=== PATIENT | male | born 1945 | race African-American/Black ===

== ENCOUNTER 2019-02-27 09:14 | Outpatient (CLI) | payer MEDICARE ==
[2019-02-27 10:22] LABS: Basophils % (Auto) 0.8 % (0.0-1.8); Eosinophils # (Auto) 0.1 K/mm3 (0.0-0.4); Eosinophils % (Auto) 2.4 % (0.0-4.3); Hematocrit 47.9 % (35.5-45.6); Hemoglobin 15.8 gm/dl (11.8-15.2); Lymphocytes # (Auto) 1.3 K/mm3 (1.2-5.4); Lymphocytes % (Auto) 23.8 % (13.4-35.0); Mean Corpuscular HGB Conc 33 % (32-34); Mean Corpuscular Volume 92 fl (84-94); Monocytes # (Auto) 0.4 K/mm3 (0.0-0.8); Platelet Count 232 K/mm3 (140-440); Red Blood Count 5.23 M/mm3 (3.65-5.03); Red Cell Distribution Width 13.4 % (13.2-15.2)
[2019-02-27 10:32] LABS: Chol/HDL Ratio 3.61 %
[2019-03-02 15:02] LABS: Vitamin D, 25-OH, D2 <4 ng/mL
== END 2019-02-27 09:15 | disposition home or self-care (01) ==
LOC: LAB 09:14
PROVIDERS: ATTEND Internal Medicine
DX: E11.9 Type 2 diabetes mellitus without complications (principal); E78.5 Hyperlipidemia, unspecified
CPT/HCPCS: 36415; 80061; 82306; 82607; 83036; 84443; 85025

== ENCOUNTER 2019-03-13 10:05 | Outpatient (CLI) | payer MEDICARE ==
[2019-03-13 11:18] LABS: Bilirubin,Urine NEG (Negative); Blood,Urine SM (Negative); Color,Urine Yellow (Yellow); Mucus,Urine FEW /HPF; Urobilinogen,Urine < 2.0 mg/dL (<2.0)
[2019-03-13 11:20] LABS: Alanine Aminotransferase 37 units/L (7-56); Albumin 4.3 g/dL (3.9-5); BUN/Creatinine Ratio 25; Blood Urea Nitrogen 20 mg/dL (9-20); Calcium 9.7 mg/dL (8.4-10.2); Hemolysis Index 8
[2019-03-13 11:26] LABS: Microalbumin/Creatinine Ratio 342.5 ug/mg
== END 2019-03-13 10:06 | disposition home or self-care (01) ==
LOC: LAB 10:05
PROVIDERS: ATTEND Internal Medicine
DX: E11.65 Type 2 diabetes mellitus with hyperglycemia (principal); N39.0 Urinary tract infection, site not specified
CPT/HCPCS: 36415; 80053; 81001; 82043; 84153

== ENCOUNTER 2019-06-11 07:21 | Day surgery (SDC) | payer MEDICARE ==
[2019-06-11] MEDS ORDERED: NACL 0.9% 500 ML 500 ML IV SCH (08:00)
[2019-06-11 08:19] LABS: Basophils % (Auto) 0.6 % (0.0-1.8); Eosinophils # (Auto) 0.1 K/mm3 (0.0-0.4); Eosinophils % (Auto) 2.1 % (0.0-4.3); Hematocrit 40.3 % (35.5-45.6); Hemoglobin 13.6 gm/dl (11.8-15.2); Lymphocytes # (Auto) 1.3 K/mm3 (1.2-5.4); Lymphocytes % (Auto) 21.1 % (13.4-35.0); Mean Corpuscular HGB Conc 34 % (32-34); Mean Corpuscular Volume 91 fl (84-94); Monocytes # (Auto) 0.5 K/mm3 (0.0-0.8); Monocytes % (Auto) 7.7 % (0.0-7.3); Platelet Count 207 K/mm3 (140-440); Red Blood Count 4.41 M/mm3 (3.65-5.03); Red Cell Distribution Width 13.5 % (13.2-15.2)
[2019-06-11 08:30] LABS: INR 0.98 (0.87-1.13)
[2019-06-11 08:33] LABS: BUN/Creatinine Ratio 22; Blood Urea Nitrogen 22 mg/dL (9-20); Calcium 9.1 mg/dL (8.4-10.2); Hemolysis Index 12
[2019-06-11] MEDS ORDERED: ECOTRIN PO NR (09:00)
[2019-06-11] MEDS ORDERED: HEPARIN 10,000 UNITS/10 ML ONE (11:42)
[2019-06-11] MEDS ORDERED: HEPARIN/NS 5000 UNIT/500ML(CATH LAB) 1,000 ML IR ONE (11:42)
[2019-06-11] MEDS ORDERED: NITROGLYCERIN SYRINGE 0 ML ONE (11:43)
[2019-06-11] MEDS ORDERED: CALAN ONE (11:43)
[2019-06-11] MEDS ORDERED: XYLOCAINE 2% INFILTRATI ONE (11:43)
[2019-06-11] MEDS: SUBLIMAZE ONE ×2 (12:18→12:31)
[2019-06-11] MEDS: VERSED ONE ×2 (12:18→12:31)
--- NOTE | 2019-06-11 13:22 | Cardiac Catherization Report ---
ATTENDING PHYSICIAN: Daniel Pereyra MD. PROCEDURES: 1. Left heart catheterization with three saphenous venous grafts and a left internal mammary artery graft. 2. Left ventriculogram via hand injection. REASON FOR PROCEDURE: The patient has a known history of coronary artery disease, status post 4-vessel bypass and a nuclear stress test positive for reversible ischemia. COMPLICATIONS: None. ESTIMATED BLOOD LOSS: Less than 30 mL. ESTIMATED CONTRAST USE: 105 mL. PROCEDURE IN DETAIL: The patient was brought to the cardiac catheterization lab in usual fasting state. The patient was prepped and draped in usual sterile fashion. A 10 mL of 1% lidocaine were injected around the right common femoral vessels. A 6-Zambian sheath was placed via modified Seldinger technique utilizing micropuncture. Next, a JL4 catheter was advanced over the wire and engaged into left main coronary artery. Angiography was performed in multiple views. The catheter was then removed and the JR4 catheter was advanced over the wire across the aortic valve into left ventricle. Left ventriculogram was performed via hand injection. Left ventricular pressure was measured. Pullback pressure was measured across the aortic valve. The JR4 catheter was then advanced into the ostia of the right coronary artery as well as 3 saphenous venous grafts and angiography was performed in multiple views. The JR4 catheter was then advanced over the wire and into the left subclavian artery for nonselective injection of the LERMA graft. The JR4 catheter was then removed over the wire. RESULTS: Left main coronary artery is a small severely diseased vessel. The left anterior descending coronary artery is a large to moderate caliber vessel, but is ostially occluded. The mid segment of the LAD is filled via a left internal mammary artery graft. There is no stenosis at the anastomosis. The mid and distal segments of the LAD show mild diffuse disease without significant stenosis. LAD also gives off collaterals to the diagonal branches. The diagonal branches appear to be moderately diffusely diseased. The first diagonal branch is ostially occluded. The left circumflex coronary artery is totally occluded proximally. The body of the circumflex is filled by small collaterals from the LAD. The left circumflex coronary artery shows to [id number] diffuse disease throughout. The right coronary artery is totally proximally occluded. The right coronary artery is filled via saphenous venous graft, which is patent. The mid and distal segments of the right coronary artery showed mild diffuse disease without significant stenosis. Saphenous venous graft to the right coronary artery is patent and shows no stenosis. Saphenous venous graft to the first diagonal branch is patent and shows no stenosis. Saphenous venous graft to the obtuse marginal is patent. The obtuse marginal 1 shows mild disease and is occluded ostially from the left circumflex coronary artery. The LERMA to the mid segment LAD is patent without significant stenosis. CONCLUSIONS: Multivessel coronary artery disease with total occlusion of the left anterior descending coronary artery proximally, total occlusion of the left circumflex coronary artery proximally, and total occlusion of the right coronary artery proximally. There are patent SVG to diagonal, SVG to obtuse marginal, and SVG to right coronary artery grafts. There is a patent LERMA to LAD graft. Left ventriculogram shows ejection fraction of 25% with inferior wall akinesis and anterior wall hypokinesis. Aortic pressure measures 150/68, left ventricular pressure measures 150/18 with an end-diastolic pressure of 29. RECOMMENDATIONS: Continue maximal medical therapy for treatment of ischemic cardiomyopathy and coronary artery disease as well as aggressive risk factor modification. SEDATION START: 12:18. SEDATION END: 12 39. JOB# [id number] MR/NTS
[2019-06-11 15:15] VITALS: BP 135/62
== END 2019-06-11 16:12 | disposition home or self-care (01) ==
LOC: CATHLABREC 07:21
PROVIDERS: ATTEND Internal Medicine Cardiovascular Disease
DX: I25.10 Atherosclerotic heart disease of native coronary artery without angina pectoris (principal); I42.8 Other cardiomyopathies; E78.00 Pure hypercholesterolemia, unspecified; I10 Essential (primary) hypertension; Z79.899 Other long term (current) drug therapy; Z87.891 Personal history of nicotine dependence; Z95.1 Presence of aortocoronary bypass graft; Z98.890 Other specified postprocedural states
CPT/HCPCS: 80048; 85025; 85610; 93010; 93459; 99156; C1760; C1894; J1644; J2250; J3010; J7040; 36415; 93005; Q9967

== ENCOUNTER 2019-06-13 09:04 | Outpatient (CLI) | payer MEDICARE | END 2019-06-13 09:05 | disposition home or self-care (01) | LOC: LAB 09:04 | PROVIDERS: ATTEND Internal Medicine | DX: E11.65 Type 2 diabetes mellitus with hyperglycemia (principal); E78.00 Pure hypercholesterolemia, unspecified; I10 Essential (primary) hypertension | CPT/HCPCS: 36415; 83036 ==

== ENCOUNTER 2019-10-31 09:46 | Outpatient (CLI) | payer MEDICARE ==
[2019-10-31 12:43] LABS: Chol/HDL Ratio 3.57 %
== END 2019-10-31 09:47 | disposition home or self-care (01) ==
LOC: LAB 09:46
PROVIDERS: ATTEND Internal Medicine
DX: E78.5 Hyperlipidemia, unspecified (principal); E11.65 Type 2 diabetes mellitus with hyperglycemia
CPT/HCPCS: 36415; 80061; 83036

== ENCOUNTER 2020-01-07 12:43 | Inpatient (IN) | payer MEDICARE ==
--- NOTE | 2020-01-07 12:52 | Emergency Department Report ---
Blank Doc - Documentation Documentation: 74-year-old male that presents with SOB, cough, fever. is quaratine at h ome for COVID-19. This initial assessment/diagnostic orders/clinical plan/treatment(s) is/are subject to change based on patient's health status, clinical progression and re- assessment by fellow clinical providers in the ED. Further treatment and workup at subsequent clinical providers discretion. Patient/guardians urged not to elope from the ED as their condition may be serious if not clinically assessed and managed. Initial orders include: 1- Patient sent to [facility] for further evaluation and treatment 2- accounts administrator notified for Iso negative pressure room stat, 3- flu swabs 4- labs
--- NOTE | 2020-01-07 13:21 | Emergency Department Report ---
- General Chief Complaint: Upper Respiratory Infection Stated Complaint: FEVER/WEAK/SOB Time Seen by Provider: 01/07/20 12:49 Source: patient Mode of arrival: Ambulatory Limitations: No Limitations - History of Present Illness Initial Comments: 74-year-old male with history of hypertension, CAD, diabetes presents to ED with 3-day history of fever, cough, shortness of breath. Patient reports fever at home, states "100 point something." Patient too motrin prior to ED arrival. Patient states he believes he got this from his . Patient reports his was recently discharged from this facility 2 days ago. States she was not tested for coronavirus, but was advised to self quarantine. MD Complaint: fever, cough -: days(s) (3) Consistency: constant Context: sick contacts Associated Symptoms: fever, cough, shortness of breath - Related Data Home Medications Medication Instructions Recorded Confirmed Last Taken Dapagliflozin Propanediol [Farxiga] 10 mg PO DAILY 06/11/19 06/11/19 06/10/19 10 mg Fish Oil 1 cap PO DAILY 06/11/19 06/11/19 06/10/19 1 Janumet 50-500 mg Tablet 1 tab PO DAILY 06/11/19 06/11/19 06/09/19 1 Rosuvastatin Calcium 40 mg PO QHS 06/11/19 06/11/19 06/10/19 40 mg Vitamin E 400 units PO DAILY 06/11/19 06/11/19 06/10/19 400 units lisinopriL [Zestril TAB] 10 mg PO DAILY 06/11/19 06/11/19 06/10/19 10 mg Allergies Allergy/AdvReac Type Severity Reaction Status Date / Time No Known Allergies Allergy Unverified 06/11/19 07:22 ED Review of Systems ROS: Stated complaint: FEVER/WEAK/SOB Other details as noted in HPI Comment: All other systems reviewed and negative Constitutional: fever Respiratory: cough, shortness of breath Gastrointestinal: denies: nausea, vomiting, diarrhea ED Past Medical Hx - Past Medical History Hx Hypertension: Yes Hx Heart Attack/AMI: Yes Hx Congestive Heart Failure: No Hx Diabetes: Yes - Surgical History Hx Open Heart Surgery: Yes - Social History Smoking Status: Never Smoker Substance Use Type: None - Medications Home Medications: Home Medications Medication Instructions Recorded Confirmed Last Taken Type Dapagliflozin Propanediol [Farxiga] 10 mg PO DAILY 06/11/19 06/11/19 06/10/19 History 10 mg Fish Oil 1 cap PO DAILY 06/11/19 06/11/19 06/10/19 History 1 Janumet 50-500 mg Tablet 1 tab PO DAILY 06/11/19 06/11/19 06/09/19 History 1 Rosuvastatin Calcium 40 mg PO QHS 06/11/19 06/11/19 06/10/19 History 40 mg Vitamin E 400 units PO DAILY 06/11/19 06/11/19 06/10/19 History 400 units lisinopriL [Zestril TAB] 10 mg PO DAILY 06/11/19 06/11/19 06/10/19 History 10 mg ED Physical Exam - General Limitations: No Limitations General appearance: alert, in no apparent distress - Head Head exam: Present: atraumatic, normocephalic - Eye Eye exam: Present: normal appearance - ENT ENT exam: Present: mucous membranes moist - Neck Neck exam: Present: normal inspection - Respiratory Respiratory exam: Present: normal lung sounds bilaterally. Absent: respiratory distress - Cardiovascular Cardiovascular Exam: Present: regular rate, normal rhythm - GI/Abdominal GI/Abdominal exam: Absent: distended - Extremities Exam Extremities exam: Present: normal inspection - Neurological Exam Neurological exam: Present: alert, oriented X3 - Psychiatric Psychiatric exam: Present: normal affect, normal mood - Skin Skin exam: Present: warm, dry, intact, normal color ED Course Vital Signs 01/07/20 01/07/20 01/07/20 12:51 13:13 13:16 Temperature 97.7 F Pulse Rate 82 91 H 89 Respiratory 18 15 20 Rate Blood Pressure 144/78 134/81 Blood Pressure [Right] O2 Sat by Pulse 94 89 Oximetry 01/07/20 01/07/20 01/07/20 13:30 13:46 14:00 Temperature Pulse Rate 91 H 82 82 Respiratory 32 H 28 H 18 Rate Blood Pressure 134/74 120/68 134/74 Blood Pressure [Right] O2 Sat by Pulse 94 93 94 Oximetry 01/07/20 01/07/20 01/07/20 14:22 14:25 15:01 Temperature 100.5 F H Pulse Rate 86 Respiratory 18 18 18 Rate Blood Pressure Blood Pressure 132/82 [Right] O2 Sat by Pulse 100 100 Oximetry ED Medical Decision Making - Lab Data Result diagrams: 01/07/20 13:45 01/07/20 13:45 - Radiology Data Radiology results: report reviewed, image reviewed - Medical Decision Making - pt placed on droplet precautions upon arrival - hx CAD, HTN, DM - fever, cough, SOB x 3 days - WBCs normal, lymphopenia present - flu neg - CXR shows bibasilar airspace disease, left worse than right - recently admitted and discharged from this facility; COVID was suspected, but [facility] declined to test pt's - blood cultures drawn; rocephin, azithromycin given - hypoxic down to 89% RA, nml on 2L O2 - pt will be admitted by Dr Edwards, hospitalist - I submitted [facility] COVID form; it was approved, lab currently here in ED to obtain samples - Differential Diagnosis pneumonia, CHF, viral illness Critical Care Time: Yes Critical care time in (mins) excluding proc time.: 35 Critical care attestation.: If time is entered above; I have spent that time in minutes in the direct care of this critically ill patient, excluding procedure time. Critical Care Time: 35 min ED Disposition Clinical Impression: Pneumonia, Hypoxia, Hyperglycemia, Liver enzyme elevation Disposition: DC-09 OP ADMIT IP TO THIS HOSP Is pt being admited?: Yes Condition: Stable Time of Disposition: 15:36
[2020-01-07] MEDS ORDERED: cefTRIAXone/NS 1 GM/50 ML 1 GM/50 ML BAG IV ONE (13:47)
[2020-01-07] MEDS ORDERED: AZITHROMYCIN 250 MG TAB PO ONE (13:48)
[2020-01-07 14:02] LABS: Basophils % (Auto) 0.3 % (0.0-1.8); Hematocrit 46.2 % (35.5-45.6); Hemoglobin 15.3 gm/dl (11.8-15.2); Lymphocytes # (Auto) 0.4 K/mm3 (1.2-5.4); Lymphocytes % (Auto) 6.7 % (13.4-35.0); Mean Corpuscular HGB Conc 33 % (32-34); Mean Corpuscular Volume 90 fl (84-94); Monocytes # (Auto) 0.2 K/mm3 (0.0-0.8); Monocytes % (Auto) 3.7 % (0.0-7.3); Platelet Count 209 K/mm3 (140-440); Red Blood Count 5.14 M/mm3 (3.65-5.03); Red Cell Distribution Width 13.3 % (13.2-15.2)
[2020-01-07 14:14] LABS: INR 0.96 (0.87-1.13); Partial Thromboplastin Time 34.9 Sec. (24.2-36.6)
--- NOTE | 2020-01-07 14:14 | XRay Report ---
CHEST 1 VIEW INDICATION / CLINICAL INFORMATION: cough, fever, sob. COMPARISON: None available. FINDINGS: SUPPORT DEVICES: None. HEART / MEDIASTINUM: No significant abnormality. LUNGS / PLEURA: Bibasilar airspace disease worse on the left than the right No pneumothorax. ADDITIONAL FINDINGS: No significant additional findings. IMPRESSION: Bibasilar airspace disease worse on the left than the right Signer Name: Davion Salas MD FACR Signed: 01/07/2020 2:10 PM Workstation Name: [id number]
[2020-01-07 14:26] LABS: Alanine Aminotransferase 81 units/L (7-56); Albumin 3.9 g/dL (3.9-5); BUN/Creatinine Ratio 28; Blood Urea Nitrogen 22 mg/dL (9-20); Calcium 9.6 mg/dL (8.4-10.2); Hemolysis Index 63
[2020-01-07] MEDS ORDERED: ACETAMINOPHEN 500 MG TAB PO ONE (14:35)
[2020-01-07 16:18] LABS: Bacteria,Urine 1+ /HPF (Negative); Bilirubin,Urine NEG (Negative); Blood,Urine MOD (Negative); Color,Urine Yellow (Yellow); Hyaline Casts,Urine 1 /LPF; Mucus,Urine FEW /HPF; Urobilinogen,Urine < 2.0 mg/dL (<2.0)
--- NOTE | 2020-01-07 23:32 | History and Physical Report ---
History of Present Illness Date of examination: 01/07/20 Date of admission: 01/07/20 15:36 Chief complaint: Fever for 1 day History of present illness: 74-year-old male with history of hypertension, CAD, diabetes presents to ED with 3-day history of fever, cough, shortness of breath. Patient reports fever at home, states "100 point something." Patient took motrin prior to ED arrival. Patient states he believes he got this from his . Patient reports his was recently discharged from this facility 2 days ago. States she was not tested for coronavirus, but was advised to self quarantine. His Ms PRESTON was admitted by me.Because of her exposure to some relatives with no symptoms -A Covid form was filled out in Ed and was rejected. was admitted for couple of days and was discharged.Was asked to self quarantine for 2 weeks. Past Medical History Hypertension: Yes Heart Attack/AMI: Yes Diabetes: Yes - Surgical History Hx Open Heart Surgery: Yes - Social History Smoking Status: Never Smoker Substance Use Type: None - Medications Home Medications: Home Medications Medication Instructions Recorded Confirmed Last Taken Type Dapagliflozin Propanediol [Farxiga] 10 mg PO DAILY 06/11/19 06/11/19 06/10/19 History 10 mg Fish Oil 1 cap PO DAILY 06/11/19 06/11/19 06/10/19 History 1 Janumet 50-500 mg Tablet 1 tab PO DAILY 06/11/19 06/11/19 06/09/19 History 1 Rosuvastatin Calcium 40 mg PO QHS 06/11/19 06/11/19 06/10/19 History 40 mg Vitamin E 400 units PO DAILY 06/11/19 06/11/19 06/10/19 History 400 units lisinopriL [Zestril TAB] 10 mg PO DAILY 06/11/19 06/11/19 06/10/19 History 10 mg Review of Systems ROS: Stated complaint: FEVER/WEAK/SOB Other details as noted in HPI Comment: All other systems reviewed and negative Constitutional: fever Respiratory: cough, shortness of breath Gastrointestinal: denies: nausea, vomiting, diarrhea Medications and Allergies Allergies Allergy/AdvReac Type Severity Reaction Status Date / Time No Known Allergies Allergy Unverified 06/11/19 07:22 Home Medications Medication Instructions Recorded Confirmed Last Taken Type Dapagliflozin Propanediol [Farxiga] 10 mg PO DAILY 06/11/19 01/08/20 06/10/19 History 10 mg Fish Oil 1 cap PO DAILY 06/11/19 01/08/20 06/10/19 History 1 Janumet 50-500 mg Tablet 1 tab PO DAILY 06/11/19 01/08/20 06/09/19 History 1 Rosuvastatin Calcium 40 mg PO QHS 06/11/19 01/08/20 06/10/19 History 40 mg Vitamin E 400 units PO DAILY 06/11/19 01/08/20 06/10/19 History 400 units lisinopriL [Zestril TAB] 10 mg PO DAILY 06/11/19 01/08/20 06/10/19 History 10 mg Exam - Constitutional Vitals: Temp Pulse Resp BP Pulse Ox 100.5 F H 86 22 108/55 95 01/07/20 14:25 01/07/20 14:25 01/07/20 17:46 01/07/20 18:00 01/07/20 18:00 General appearance: Present: no acute distress, well-nourished - EENT Eyes: Present: PERRL ENT: hearing intact, clear oral mucosa - Neck Neck: Present: supple, normal ROM - Respiratory Respiratory effort: normal Respiratory: bilateral: CTA, rhonchi (Scattered) - Cardiovascular Heart rate: 88 Rhythm: regular Heart Sounds: Present: S1 & S2. Absent: rub, click - Extremities Extremities: no ischemia, pulses intact, pulses symmetrical, No edema Peripheral Pulses: within normal limits - Abdominal General gastrointestinal: Present: soft, non-tender, non-distended, normal bowel sounds Male genitourinary: Present: normal - Rectal Rectal Exam: deferred - Integumentary Integumentary: Present: clear, warm, dry - Musculoskeletal Musculoskeletal: gait normal, strength equal bilaterally - Psychiatric Psychiatric: appropriate mood/affect, intact judgment & insight - Neurologic Neurologic: CNII-XII intact, moves all extremities - Allied Health Allied health notes reviewed: nursing, case management Results - Labs CBC & Chem 7: 01/07/20 13:45 01/07/20 13:45 Labs: Laboratory Last Values WBC 6.2 K/mm3 (4.5-11.0) 01/07/20 13:45 RBC 5.14 M/mm3 (3.65-5.03) H 01/07/20 13:45 Hgb 15.3 gm/dl (11.8-15.2) H 01/07/20 13:45 Hct 46.2 % (35.5-45.6) H 01/07/20 13:45 MCV 90 fl (84-94) 01/07/20 13:45 MCH 30 pg (28-32) 01/07/20 13:45 MCHC 33 % (32-34) 01/07/20 13:45 RDW 13.3 % (13.2-15.2) 01/07/20 13:45 Plt Count 209 K/mm3 (140-440) 01/07/20 13:45 Lymph % (Auto) 6.7 % (13.4-35.0) L 01/07/20 13:45 Clark % (Auto) 3.7 % (0.0-7.3) 01/07/20 13:45 Eos % (Auto) 0.0 % (0.0-4.3) 01/07/20 13:45 Baso % (Auto) 0.3 % (0.0-1.8) 01/07/20 13:45 Lymph # 0.4 K/mm3 (1.2-5.4) L 01/07/20 13:45 Clark # 0.2 K/mm3 (0.0-0.8) 01/07/20 13:45 Eos # 0.0 K/mm3 (0.0-0.4) 01/07/20 13:45 Baso # 0.0 K/mm3 (0.0-0.1) 01/07/20 13:45 Seg Neutrophils % 89.3 % (40.0-70.0) H 01/07/20 13:45 Seg Neutrophils # 5.5 K/mm3 (1.8-7.7) 01/07/20 13:45 PT 12.9 Sec. (12.2-14.9) 01/07/20 13:45 INR 0.96 (0.87-1.13) 01/07/20 13:45 APTT 34.9 Sec. (24.2-36.6) 01/07/20 13:45 Sodium 130 mmol/L (137-145) L 01/07/20 13:45 Potassium 4.9 mmol/L (3.6-5.0) 01/07/20 13:45 Chloride 89.8 mmol/L (98-107) L 01/07/20 13:45 Carbon Dioxide 22 mmol/L (22-30) 01/07/20 13:45 Anion Gap 23 mmol/L 01/07/20 13:45 BUN 22 mg/dL (9-20) H 01/07/20 13:45 Creatinine 0.8 mg/dL (0.8-1.5) 01/07/20 13:45 Estimated GFR > 60 ml/min 01/07/20 13:45 BUN/Creatinine Ratio 28 % 01/07/20 13:45 Glucose 320 mg/dL (75-100) H 01/07/20 13:45 Calcium 9.6 mg/dL (8.4-10.2) 01/07/20 13:45 Total Bilirubin 0.70 mg/dL (0.1-1.2) 01/07/20 13:45 AST 86 units/L (5-40) H 01/07/20 13:45 ALT 81 units/L (7-56) H 01/07/20 13:45 Alkaline Phosphatase 52 units/L (35-129) 01/07/20 13:45 Troponin T < 0.010 ng/mL (0.00-0.029) 01/07/20 Unknown C-Reactive Protein 19.20 mg/dL (0.00-1.30) H 01/07/20 13:45 NT-Pro-B Natriuret Pep 1151 pg/mL (0-900) H 01/07/20 13:45 Total Protein 8.6 g/dL (6.3-8.2) H 01/07/20 13:45 Albumin 3.9 g/dL (3.9-5) 01/07/20 13:45 Albumin/Globulin Ratio 0.8 % 01/07/20 13:45 Urine Color Yellow (Yellow) 01/07/20 Unknown Urine Turbidity Clear (Clear) 01/07/20 Unknown Urine pH 5.0 (5.0-7.0) 01/07/20 Unknown Ur Specific [place] 1.031 (1.003-1.030) H 01/07/20 Unknown Urine Protein 100 mg/dl mg/dL (Negative) 01/07/20 Unknown Urine Glucose (UA) >=500 mg/dL (Negative) 01/07/20 Unknown Urine Ketones 20 mg/dL (Negative) 01/07/20 Unknown Urine Blood Mod (Negative) 01/07/20 Unknown Urine Nitrite Neg (Negative) 01/07/20 Unknown Urine Bilirubin Neg (Negative) 01/07/20 Unknown Urine Urobilinogen < 2.0 mg/dL (<2.0) 01/07/20 Unknown Ur Leukocyte Esterase Neg (Negative) 01/07/20 Unknown Urine WBC (Auto) 1.0 /HPF (0.0-6.0) 01/07/20 Unknown Urine RBC (Auto) 1.0 /HPF (0.0-6.0) 01/07/20 Unknown U Epithel Cells (Auto) < 1.0 /HPF (0-13.0) 01/07/20 Unknown Urine Bacteria (Auto) 1+ /HPF (Negative) 01/07/20 Unknown Hyaline Casts 1 /LPF 01/07/20 Unknown Urine Mucus Few /HPF 01/07/20 Unknown Influenza A (Rapid) Negative (Negative) 01/07/20 Unknown Influenza B (Rapid) Negative (Negative) 01/07/20 Unknown Short CBC 01/07/20 Range/Units 13:45 WBC 6.2 (4.5-11.0) K/mm3 Hgb 15.3 H (11.8-15.2) gm/dl Hct 46.2 H (35.5-45.6) % Plt Count 209 (140-440) K/mm3 BMP 01/07/20 13:45 Sodium 130 L Potassium 4.9 Chloride 89.8 L Carbon Dioxide 22 BUN 22 H Creatinine 0.8 Glucose 320 H Calcium 9.6 Cardiac Enzymes 01/07/20 01/07/20 Range/Units 13:45 Unknown Troponin T < 0.010 < 0.010 (0.00-0.029) ng/mL Liver Function 01/07/20 Range/Units 13:45 Total Bilirubin 0.70 (0.1-1.2) mg/dL AST 86 H (5-40) units/L ALT 81 H (7-56) units/L Alkaline Phosphatase 52 (35-129) units/L Albumin 3.9 (3.9-5) g/dL Urine 01/07/20 Range/Units Unknown Urine Color Yellow (Yellow) Urine pH 5.0 (5.0-7.0) Ur Specific [place] 1.031 H (1.003-1.030) Urine Protein 100 mg/dl (Negative) mg/dL Urine Glucose (UA) >=500 (Negative) mg/dL - Imaging and Cardiology Chest x-ray: report reviewed (Bilateral PNA L more than R) Shine/IV: Voiding Method Urinal IV Catheter Type [Right Hand] INT / Saline Lock Assessment and Plan Advance Directives: Yes (Full code) VTE prophylaxis?: Chemical Plan of care discussed with patient/family: Yes - Patient Problems (1) Bilateral pneumonia Current Visit: Yes Status: Acute Qualifiers: Lung location: unspecified part of lung Plan to address problem: Started on Zithromax IV and IV Rocephin Patient has Lymphopenia Covid Form filled out . Patient isolation initiated coz of exposure to and she could not be tested for Covid inspite of requsting [facility] ID consult requested (2) HTN (hypertension) Current Visit: Yes Status: Chronic Qualifiers: Hypertension type: essential hypertension Qualified Code(s): I10 - Essential (primary) hypertension Plan to address problem: Cont antihypertensives (3) T2DM (type 2 diabetes mellitus) Current Visit: Yes Status: Chronic Qualifiers: Diabetes mellitus snf insulin use: unspecified snf insulin use status Plan to address problem: Coverage and COnt Janumet (4) HLD (hyperlipidemia) Current Visit: Yes Status: Chronic Qualifiers: Hyperlipidemia type: mixed hyperlipidemia Qualified Code(s): E78.2 - Mixed hyperlipidemia Plan to address problem: Cont Statins (5) DVT prophylaxis Current Visit: Yes Status: Acute Plan to address problem: On Heparin and GI prophylaxis
[2020-01-07] MEDS ORDERED: ALBUTEROL 8.5 GM INHALATION IH PRN (23:45)
[2020-01-08] MEDS ORDERED: LINAGLIPTIN 5 MG TAB PO SCH (08:00)
[2020-01-08] MEDS: metFORMIN 500 MG TAB PO SCH (08:54)
[2020-01-08] MEDS: cefTRIAXone/NS 2 GM/100 ML 2 GM/100 ML BAG IV SCH (09:11)
[2020-01-08] MEDS: TOCOPHEROL 200 UNIT CAP PO SCH (09:11)
[2020-01-08] MEDS: INSULIN LISPRO 100 UNIT/ML SUB-Q SCH ×3 (09:12→23:08)
[2020-01-08] MEDS: LISINOPRIL 10 MG TAB PO SCH (09:13)
[2020-01-08] MEDS: SODIUM CHLORIDE 0.9% 1000 ML 1,000 ML IV SCH (09:18)
[2020-01-08] MEDS ORDERED: JANUMET PO SCH (10:00)
[2020-01-08] MEDS ORDERED: VITAMIN E 400 UNIT PO SCH (10:00)
[2020-01-08] MEDS ORDERED: AZITHROMYCIN 500 MG in SODIUM CHLORIDE 0.9% 250ML 250 ML IV SCH (10:00)
--- NOTE | 2020-01-08 13:42 | Progress Note ---
Assessment and Plan Assessment and plan: Bilateral pneumonia -Patient is on IV Rocephin and Zithromax -Lymphopenia, patient is still shooting fever -Patient is suspected for COVID-19 and ID consulted Hypertension -Continue antihypertensives Type 2 diabetes mellitus with hyperglycemia -Sliding scale insulin and continue Janumet -We will check A1c Hyperlipidemia -Continue statin DVT prophylaxis -On heparin Disposition; continue inpatient care. Patient will be discharged once she is fever free for at least for 24 hours. History Interval history: Patient was seen and evaluated this morning, patient had episodes of fever overnight. Hospitalist Physical - Physical exam Narrative exam: Not in cardiopulmonary distress. The patient appeared well nourished and normally developed. Vital signs as documented. Head exam is unremarkable. No scleral icterus . Neck is without jugular venous distension, thyromegaly, or carotid bruits. Lungs are clear to auscultation. Cardiac exam reveals regular rate and Rhythm. Abdominal exam reveals normal bowel sounds, nontender, no organomegaly. Extremities are nonedematous and both femoral and pedal pulses are normal. LITIGATION COUNSEL: Alert and oriented 3. No focal weakness. - Constitutional Vitals: Temp Pulse Resp BP Pulse Ox 99.4 F 74 18 146/72 96 01/08/20 08:55 01/08/20 09:13 01/08/20 05:49 01/08/20 09:13 01/08/20 08:35 General appearance: Present: no acute distress, well-nourished Results - Labs CBC & Chem 7: 01/07/20 13:45 01/07/20 13:45 Labs: Laboratory Last Values WBC 6.2 K/mm3 (4.5-11.0) 01/07/20 13:45 RBC 5.14 M/mm3 (3.65-5.03) H 01/07/20 13:45 Hgb 15.3 gm/dl (11.8-15.2) H 01/07/20 13:45 Hct 46.2 % (35.5-45.6) H 01/07/20 13:45 MCV 90 fl (84-94) 01/07/20 13:45 MCH 30 pg (28-32) 01/07/20 13:45 MCHC 33 % (32-34) 01/07/20 13:45 RDW 13.3 % (13.2-15.2) 01/07/20 13:45 Plt Count 209 K/mm3 (140-440) 01/07/20 13:45 Lymph % (Auto) 6.7 % (13.4-35.0) L 01/07/20 13:45 [place] % (Auto) 3.7 % (0.0-7.3) 01/07/20 13:45 Eos % (Auto) 0.0 % (0.0-4.3) 01/07/20 13:45 Baso % (Auto) 0.3 % (0.0-1.8) 01/07/20 13:45 Lymph # 0.4 K/mm3 (1.2-5.4) L 01/07/20 13:45 [place] # 0.2 K/mm3 (0.0-0.8) 01/07/20 13:45 Eos # 0.0 K/mm3 (0.0-0.4) 01/07/20 13:45 Baso # 0.0 K/mm3 (0.0-0.1) 01/07/20 13:45 Seg Neutrophils % 89.3 % (40.0-70.0) H 01/07/20 13:45 Seg Neutrophils # 5.5 K/mm3 (1.8-7.7) 01/07/20 13:45 PT 12.9 Sec. (12.2-14.9) 01/07/20 13:45 INR 0.96 (0.87-1.13) 01/07/20 13:45 APTT 34.9 Sec. (24.2-36.6) 01/07/20 13:45 Sodium 130 mmol/L (137-145) L 01/07/20 13:45 Potassium 4.9 mmol/L (3.6-5.0) 01/07/20 13:45 Chloride 89.8 mmol/L (98-107) L 01/07/20 13:45 Carbon Dioxide 22 mmol/L (22-30) 01/07/20 13:45 Anion Gap 23 mmol/L 01/07/20 13:45 BUN 22 mg/dL (9-20) H 01/07/20 13:45 Creatinine 0.8 mg/dL (0.8-1.5) 01/07/20 13:45 Estimated GFR > 60 ml/min 01/07/20 13:45 BUN/Creatinine Ratio 28 % 01/07/20 13:45 Glucose 320 mg/dL (75-100) H 01/07/20 13:45 POC Glucose 232 (70-105) H 01/08/20 08:57 Calcium 9.6 mg/dL (8.4-10.2) 01/07/20 13:45 Total Bilirubin 0.70 mg/dL (0.1-1.2) 01/07/20 13:45 AST 86 units/L (5-40) H 01/07/20 13:45 ALT 81 units/L (7-56) H 01/07/20 13:45 Alkaline Phosphatase 52 units/L (35-129) 01/07/20 13:45 Troponin T < 0.010 ng/mL (0.00-0.029) 01/07/20 Unknown C-Reactive Protein 19.20 mg/dL (0.00-1.30) H 01/07/20 13:45 NT-Pro-B Natriuret Pep 1151 pg/mL (0-900) H 01/07/20 13:45 Total Protein 8.6 g/dL (6.3-8.2) H 01/07/20 13:45 Albumin 3.9 g/dL (3.9-5) 01/07/20 13:45 Albumin/Globulin Ratio 0.8 % 01/07/20 13:45 Urine Color Yellow (Yellow) 01/07/20 Unknown Urine Turbidity Clear (Clear) 01/07/20 Unknown Urine pH 5.0 (5.0-7.0) 01/07/20 Unknown Ur Specific [place] 1.031 (1.003-1.030) H 01/07/20 Unknown Urine Protein 100 mg/dl mg/dL (Negative) 01/07/20 Unknown Urine Glucose (UA) >=500 mg/dL (Negative) 01/07/20 Unknown Urine Ketones 20 mg/dL (Negative) 01/07/20 Unknown Urine Blood Mod (Negative) 01/07/20 Unknown Urine Nitrite Neg (Negative) 01/07/20 Unknown Urine Bilirubin Neg (Negative) 01/07/20 Unknown Urine Urobilinogen < 2.0 mg/dL (<2.0) 01/07/20 Unknown Ur Leukocyte Esterase Neg (Negative) 01/07/20 Unknown Urine WBC (Auto) 1.0 /HPF (0.0-6.0) 01/07/20 Unknown Urine RBC (Auto) 1.0 /HPF (0.0-6.0) 01/07/20 Unknown U Epithel Cells (Auto) < 1.0 /HPF (0-13.0) 01/07/20 Unknown Urine Bacteria (Auto) 1+ /HPF (Negative) 01/07/20 Unknown Hyaline Casts 1 /LPF 01/07/20 Unknown Urine Mucus Few /HPF 01/07/20 Unknown Influenza A (Rapid) Negative (Negative) 01/07/20 Unknown Influenza B (Rapid) Negative (Negative) 01/07/20 Unknown Microbiology: Microbiology 01/07/20 13:49 Peripheral/Venous Blood Culture - Preliminary Culture in Progress 01/07/20 13:49 Peripheral/Venous Blood Culture - Preliminary Culture in Progress Shine/IV: Voiding Method Urinal IV Catheter Type [Right Hand] INT / Saline Lock Active Medications - Current Medications Current Medications: Generic Name Dose Route Start Last Admin Trade Name Freq PRN Reason Stop Dose Admin Albuterol 2 puff 01/07/20 23:45 Proair IH Q4HRT PRN Shortness Of Breath Atorvastatin Calcium 80 mg 01/08/20 22:00 Lipitor PO QHS JORGE Enoxaparin Sodium 40 mg 01/08/20 22:00 Enoxaparin SUB-Q QDAY@2200 JORGE Azithromycin 500 mg/ Sodium 250 mls @ 250 mls/hr 01/08/20 10:00 01/08/20 12:13 Chloride IV Infused Q24HR JORGE Infusion Protocol Ceftriaxone Sodium 2 gm in 100 mls @ 200 mls/hr 01/08/20 10:00 01/08/20 12:13 Rocephin/Ns 2 Gm/100 Ml IV Infused Q24HR JORGE Infusion Protocol Sodium Chloride 1,000 mls @ 75 mls/hr 01/08/20 08:00 01/08/20 09:18 Nacl 0.9% 1000 Ml IV 75 mls/hr DIRECT JORGE Administration Insulin Human Lispro 0 unit 01/08/20 07:30 01/08/20 12:14 Humalog SUB-Q Not Given ACHS JORGE Protocol Linagliptin 5 mg 01/08/20 08:00 01/08/20 08:54 Tradjenta PO 5 mg QDAY@0800 JORGE Administration Lisinopril 10 mg 01/08/20 10:00 01/08/20 09:13 Zestril PO 10 mg DAILY JORGE Administration Metformin HCl 500 mg 01/08/20 08:00 01/08/20 08:54 Glucophage PO 500 mg QDAY@0800 JORGE Administration Vitamin E 400 unit 01/08/20 10:00 01/08/20 09:11 Vitamin E Cap PO 400 unit DAILY JORGE Administration
--- NOTE | 2020-01-08 14:01 | Consultation ---
History of Present Illness - Reason for Consult Consult date: 01/08/20 - History of Present Illness 74-year-old male past medical history hypertension, CAD, diabetes admitted to the hospital with complaints of fever, cough, shortness of breath. He notes the symptoms began approximately 3 days prior to admission, and that his was recently admitted for the similar symptoms and was discharged 2 days prior to admission. She was not tested for COVID-19, but was advised self quarantine. She was evaluated and survey was filled out in the emergency room, however it was rejected by [facility]. Febrile to 100.5 with a normal white count and a lymphopenia. Currently receiving ceftriaxone and azithromycin. Blood cultures are pending. Imaging personally reviewed: Chest x-ray: Bibasilar airspace disease right greater than left Review of Systems: Bold if positive, otherwise negative General: fevers, chills, rigors HEENT: visual disturbance, diplopia, eye pain Respiratory: cough, sputum, hemoptysis, shortness of breath Cardiovascular: chest pain, syncope Gastrointestinal: nausea, vomiting, diarrhea, abdominal pain Genitourinary: dysuria, hematuria, flank pain Musculoskeletal: neck pain, back pain, joint pain, edema Neurologic: headaches, seizures Hematologic: easy bruising or bleeding Endocrine: night sweats, acute weight loss Skin: rash, jaundice, redness Psychiatric: suicidal, homicidal ideation Past History Past Medical History: CAD, diabetes, hypertension Past Surgical History: No surgical history Social history: denies: alcohol abuse Family history: diabetes, hypertension Medications and Allergies Allergies Allergy/AdvReac Type Severity Reaction Status Date / Time No Known Allergies Allergy Unverified 06/11/19 07:22 Home Medications Medication Instructions Recorded Confirmed Last Taken Type Dapagliflozin Propanediol [Farxiga] 10 mg PO DAILY 06/11/19 01/08/20 06/10/19 History 10 mg Fish Oil 1 cap PO DAILY 06/11/19 01/08/20 06/10/19 History 1 Janumet 50-500 mg Tablet 1 tab PO DAILY 06/11/19 01/08/20 06/09/19 History 1 Rosuvastatin Calcium 40 mg PO QHS 06/11/19 01/08/20 06/10/19 History 40 mg Vitamin E 400 units PO DAILY 06/11/19 01/08/20 06/10/19 History 400 units lisinopriL [Zestril TAB] 10 mg PO DAILY 06/11/19 01/08/20 06/10/19 History 10 mg Active Meds: Active Medications Albuterol (Proair) 2 puff IH Q4HRT PRN PRN Reason: Shortness Of Breath Atorvastatin Calcium (Lipitor) 80 mg PO QHS [facility] Enoxaparin Sodium (Enoxaparin) 40 mg SUB-Q QDAY@2200 [facility] Azithromycin 500 mg/ Sodium (Chloride) 250 mls @ 250 mls/hr IV Q24HR [facility]; Protocol Last Infusion: 01/08/20 12:13 Dose: Infused Documented by: Ceftriaxone Sodium (Rocephin/Ns 2 Gm/100 Ml) 2 gm in 100 mls @ 200 mls/hr IV Q24HR [facility]; Protocol Last Infusion: 01/08/20 12:13 Dose: Infused Documented by: Sodium Chloride (Nacl 0.9% 1000 Ml) 1,000 mls @ 75 mls/hr IV DIRECT [facility] Last Admin: 01/08/20 09:18 Dose: 75 mls/hr Documented by: Insulin Human Lispro (Humalog) 0 unit SUB-Q ACHS [facility]; Protocol Last Admin: 01/08/20 12:14 Dose: Not Given Documented by: Linagliptin (Tradjenta) 5 mg PO QDAY@0800 [facility] Last Admin: 01/08/20 08:54 Dose: 5 mg Documented by: Lisinopril (Zestril) 10 mg PO DAILY [facility] Last Admin: 01/08/20 09:13 Dose: 10 mg Documented by: Metformin HCl (Glucophage) 500 mg PO QDAY@0800 [facility] Last Admin: 01/08/20 08:54 Dose: 500 mg Documented by: Vitamin E (Vitamin E Cap) 400 unit PO DAILY [facility] Last Admin: 01/08/20 09:11 Dose: 400 unit Documented by: Physical Examination - Physical Exam Narrative exam: Physical Exam: Constitutional: Alert, cooperative. No acute distress Head, Ears, Nose: Normocephalic, atraumatic. External ears, nose normal Eyes: Conjunctivae/corneas clear. No icterus. No ptosis. Neck: Supple, no meningeal signs Oral: dentition fair, no thrush Cardiovascular: S1, S2 normal. Respiratory: Mild bilateral rhonchi GI: Soft, non-tender; bowel sounds normal. No peritoneal signs. Musculoskeletal: No pedal edema, no cyanosis. Skin: No rash or abscess Hem/Lymphatic: No palpable cervical or supraclavicular nodes. No lymphangitis Psych: Mood ok. Affect normal Neurological: Awake, alert, oriented. No gross abnormality - Constitutional Vitals: Vital Signs Temp Pulse Resp BP Pulse Ox 99.4 F 74 18 146/72 96 01/08/20 08:55 01/08/20 09:13 01/08/20 05:49 01/08/20 09:13 01/08/20 08:35 Temperature -Last 24 Hours Temperature 99.4 F Temperature 97.4 F Temperature 98.4 F Temperature 100.5 F Results - Labs CBC & Chem 7: 01/07/20 13:45 01/07/20 13:45 Labs: Abnormal lab results 01/07/20 01/07/20 01/07/20 Range/Units 13:45 13:45 13:45 RBC 5.14 H (3.65-5.03) M/mm3 Hgb 15.3 H (11.8-15.2) gm/dl Hct 46.2 H (35.5-45.6) % Lymph % (Auto) 6.7 L (13.4-35.0) % Lymph # 0.4 L (1.2-5.4) K/mm3 Seg Neutrophils % 89.3 H (40.0-70.0) % Sodium 130 L (137-145) mmol/L Chloride 89.8 L (98-107) mmol/L BUN 22 H (9-20) mg/dL Glucose 320 H (75-100) mg/dL POC Glucose (70-105) AST 86 H (5-40) units/L ALT 81 H (7-56) units/L C-Reactive Protein 19.20 H (0.00-1.30) mg/dL NT-Pro-B Natriuret Pep 1151 H (0-900) pg/mL Total Protein 8.6 H (6.3-8.2) g/dL Ur Specific [place] (1.003-1.030) 01/07/20 01/08/20 Range/Units Unknown 08:57 RBC (3.65-5.03) M/mm3 Hgb (11.8-15.2) gm/dl Hct (35.5-45.6) % Lymph % (Auto) (13.4-35.0) % Lymph # (1.2-5.4) K/mm3 Seg Neutrophils % (40.0-70.0) % Sodium (137-145) mmol/L Chloride (98-107) mmol/L BUN (9-20) mg/dL Glucose (75-100) mg/dL POC Glucose 232 H (70-105) AST (5-40) units/L ALT (7-56) units/L C-Reactive Protein (0.00-1.30) mg/dL NT-Pro-B Natriuret Pep (0-900) pg/mL Total Protein (6.3-8.2) g/dL Ur Specific [place] 1.031 H (1.003-1.030) Assessment and Plan Cultures: Blood culture 01/07/2020 no growth to date A/P: 74-year-old man past medical history hypertension, CAD, DM 2 admitted with bilateral pneumonia. #COVID-19 rule out: Agree with testing given patient is febrile with bilateral airspace disease and a normal white count with lymphopenia. All consistent with possible cochlear disease. Maintain droplet and contact precautions until testing received. #Bilateral pneumonia: Would obtain procalcitonin with morning labs, and continue ceftriaxone azithromycin for now. #DM2: Tight glycemic control for best outcomes Recs: -Continue ceftriaxone and azithromycin for now -Elderly patients are at risk for rapid decompensation with COVID-19, as such continue to monitor closely. -Follow-up with [facility] regarding COVID-19 testing -Ordered procalcitonin for morning labs Thank you for the consult, will continue to follow MD [facility] M: [phone] O: [phone] F: [phone]
[2020-01-08 15:58] LABS: Hepatitis C Virus Antibody Non-Reactive (NonReactive)
[2020-01-08 16:35] LABS: Hepatitis B Surface Antigen Non-Reactive (Negative)
[2020-01-08] MEDS ORDERED: ENOXAPARIN 40 MG/0.4 ML INJ SUB-Q SCH (22:00)
[2020-01-08] MEDS ORDERED: NON-FORMULARY EACH (Rosuvastatin Calcium [Rosuvastatin Calcium] 40 MG) PO SCH (22:00)
[2020-01-09 02:02] VITALS: BP 129/72
[2020-01-09] MEDS: SODIUM CHLORIDE 0.9% 1000 ML 1,000 ML IV SCH (05:34)
[2020-01-09 07:03] LABS: Hematocrit 42.5 % (35.5-45.6); Hemoglobin 14.1 gm/dl (11.8-15.2); Mean Corpuscular HGB Conc 33 % (32-34); Mean Corpuscular Volume 89 fl (84-94); Platelet Count 241 K/mm3 (140-440); Red Blood Count 4.79 M/mm3 (3.65-5.03); Red Cell Distribution Width 13.3 % (13.2-15.2)
[2020-01-09 07:21] LABS: BUN/Creatinine Ratio 30; Blood Urea Nitrogen 21 mg/dL (9-20); Hemolysis Index 3
[2020-01-09 08:14] LABS: Basophils % (Manual) 0 % (0.0-1.8); Eosinophils % (Manual) 0 % (0.0-4.3); Total Cells Counted 100
[2020-01-09 08:15] LABS: Platelet Estimate Consistent w Auto; RBC Morphology Normal
--- NOTE | 2020-01-09 10:57 | Discharge Summary ---
Providers - Providers Date of Admission: 01/07/20 15:36 Date of discharge: 01/09/20 Attending physician: ELIDA DUFFY MD 01/08/20 06:16 Consult to Physician [CONS] Routine Comment: Consulting Provider: TERESA LEE Physician Instructions: Reason For Exam: [place] Pneumonia and COVID form filled out Primary care physician: DESULFURIZER OPERATOR Hospitalization Reason for admission: Bibasilar pneumonia, suspected COVID Condition: Stable Pertinent studies: CXR Hospital course: 74-year-old male with history of hypertension, CAD, diabetes presents to ED with 3-day history of fever, cough, shortness of breath. Patient reports fever at home, states "100 point something." Patient took motrin prior to ED arrival. Patient states he believes he got this from his . Patient reports his was recently discharged from this facility 2 days ago. States she was not tested for coronavirus, but was advised to self quarantine. His Ms PRESTON was admitted by me (Dr Edwards). Because of her exposure to some relatives with no symptoms -A Covid form was filled out in Ed and was rejected. was admitted for couple of days and was discharged.Was asked to self quarantine for 2 weeks. Patient was admitted to the hospital for the management of bilateral pneumonia and suspected COVID. Patient fulfill sepsis criteria; patient was having fever, tachypnea and tachycardia, patient was treated with IV antibiotics IV and discharged antibiotics. Patient symptoms are getting better. COVID-19 test was ordered. Follow the result with [facility]. I have advised him to be quarantined for 2 weeks from symptom onset if it is positive for COVID. The nurse also gave him written instructions about currently. Patient was hemodynamically stable and discharged home. Appropriate antibiotics were given at the time of discharge. Disposition: DC-01 TO HOME OR SELFCARE Time spent for discharge: 32 minutes - Discharge Diagnoses (1) Suspected 2019-nCoV infection Status: Acute (2) Bilateral pneumonia Status: Acute Qualifiers: Pneumonia type: due to unspecified organism Lung location: unspecified part of lung Qualified Code(s): J18.9 - Pneumonia, unspecified organism (3) Sepsis Status: Acute Qualifiers: Sepsis type: sepsis due to unspecified organism Severe sepsis acute organ dysfunction type: unspecified Severe sepsis shock status: unspecified Core Measure Documentation - Palliative Care Palliative Care/ Comfort Measures: Not Applicable - Core Measures Any of the following diagnoses?: none Exam - Physical Exam Narrative exam: Not in cardiopulmonary distress. The patient appeared well nourished and normally developed. Vital signs as documented. Head exam is unremarkable. No scleral icterus . Neck is without jugular venous distension, thyromegaly, or carotid bruits. Lungs are clear to auscultation. Cardiac exam reveals regular rate and Rhythm. Abdominal exam reveals normal bowel sounds, nontender, no organomegaly. Extremities are nonedematous and both femoral and pedal pulses are normal. PRINCIPAL JAVA SOFTWARE ENGINEER: Alert and oriented 3. No focal weakness. - Constitutional Vitals: Temp Pulse Resp BP Pulse Ox 97.5 F L 89 20 129/72 90 01/09/20 01:52 01/09/20 01:52 01/09/20 01:52 01/09/20 01:52 01/09/20 01:52 Plan Activity: no restrictions Diet: regular Follow up with: PRIMARY CARE, [Primary Care Provider] - 3-5 Days Prescriptions: cephALEXin [Keflex] 500 mg PO Q8HR #15 cap Azithromycin [Zithromax TAB] 250 mg PO QDAY #5 tablet
[2020-01-09] MEDS: LISINOPRIL 10 MG TAB PO SCH (11:46)
[2020-01-09] MEDS: TOCOPHEROL 200 UNIT CAP PO SCH (11:46)
[2020-01-09] MEDS: metFORMIN 500 MG TAB PO SCH (11:47)
[2020-01-09] MEDS: INSULIN LISPRO 100 UNIT/ML SUB-Q SCH ×5 (11:48→12:57)
[2020-01-09] MEDS: cefTRIAXone/NS 2 GM/100 ML 2 GM/100 ML BAG IV SCH (12:57)
[2020-01-09] MEDS ORDERED: AZITHROMYCIN 250 MG TAB PO SCH (13:00)
--- NOTE | 2020-01-09 16:25 | Progress Note ---
Assessment and Plan Cultures: Blood culture 01/07/2020 no growth to date A/P: 74-year-old man past medical history hypertension, CAD, DM 2 admitted with bilateral pneumonia. #COVID-19 rule out: Agree with testing given patient is febrile with bilateral airspace disease and a normal white count with lymphopenia. All consistent with possible cochlear disease. Maintain droplet and contact precautions until testing received. #Bilateral pneumonia: Would obtain procalcitonin with morning labs, and continue ceftriaxone azithromycin for now. #DM2: Tight glycemic control for best outcomes Recs: -Continue ceftriaxone and azithromycin for now -Elderly patients are at risk for rapid decompensation with COVID-19 -Follow-up with regarding COVID-19 testing -Ordered procalcitonin for morning labs - Patient may be discharged when medically stable if testing swabs have been obtained. Upon discharge patient should self-quarantine at home until COVID testing returns. If negative, self-quarantine may end. If positive patient should self-quarantine for 14 days from symptom beginning. Public health and infection prevention will follow up with patients to notify them of their test results. Patients should return to hospital regardless if they have worsening fevers or respiratory status. Thank you for the consult, will continue to follow Nash Lange MD [facility] [place] M: [phone] O: [phone] F: [phone] Subjective Date of service: 01/09/20 Interval history: Afebrile, no acute complaints at this time. Normal white count. Objective - Exam Narrative Exam: Physical Exam: Constitutional: Alert, cooperative. No acute distress Eyes: Conjunctivae/corneas clear. No icterus. No ptosis. Neck: Supple, no meningeal signs Oral: dentition fair, no thrush Cardiovascular: S1, S2 normal. Respiratory: Mild bilateral rhonchi GI: Soft, non-tender; bowel sounds normal. No peritoneal signs. Musculoskeletal: No pedal edema, no cyanosis. Skin: No rash or abscess Hem/Lymphatic: No palpable cervical or supraclavicular nodes. No lymphangitis Psych: Mood ok. Affect normal Neurological: Awake, alert, oriented. No gross abnormality - Constitutional Vitals: Vital Signs Temp Pulse Resp BP Pulse Ox 98.6 F 89 20 129/72 91 01/09/20 11:34 01/09/20 11:46 01/09/20 11:34 01/09/20 11:46 01/09/20 11:34 Temperature -Last 24 Hours Temperature 98.6 F Temperature 97.5 F - Labs CBC & Chem 7: 01/09/20 06:17 01/09/20 06:17 Labs: Abnormal lab results 01/08/20 01/09/20 01/09/20 Range/Units 23:15 06:17 06:17 Seg Neuts % (Manual) 96.0 H (40.0-70.0) % Lymphocytes % (Manual) 1.0 L (13.4-35.0) % Seg Neutrophils # Man 7.8 H (1.8-7.7) K/mm3 Lymphocytes # (Manual) 0.1 L (1.2-5.4) K/mm3 Sodium 135 L (137-145) mmol/L Chloride 95.4 L (98-107) mmol/L BUN 21 H (9-20) mg/dL Creatinine 0.7 L (0.8-1.5) mg/dL Glucose 235 H (75-100) mg/dL POC Glucose 278 H (70-105) 01/09/20 01/09/20 Range/Units 08:53 11:42 Seg Neuts % (Manual) (40.0-70.0) % Lymphocytes % (Manual) (13.4-35.0) % Seg Neutrophils # Man (1.8-7.7) K/mm3 Lymphocytes # (Manual) (1.2-5.4) K/mm3 Sodium (137-145) mmol/L Chloride (98-107) mmol/L BUN (9-20) mg/dL Creatinine (0.8-1.5) mg/dL Glucose (75-100) mg/dL POC Glucose 225 H 276 H (70-105)
== END 2020-01-09 15:15 | disposition home or self-care (01) | DRG 871 ==
LOC: ED 12:43 → 4A 15:36 → 3A 01-09 01:06
PROVIDERS: ADMIT Internal Medicine; ATTEND Internal Medicine
DX: A41.9 Sepsis, unspecified organism (principal); J18.9 Pneumonia, unspecified organism; E87.1 Hypo-osmolality and hyponatremia; I25.10 Atherosclerotic heart disease of native coronary artery without angina pectoris; E78.5 Hyperlipidemia, unspecified; I10 Essential (primary) hypertension; E11.65 Type 2 diabetes mellitus with hyperglycemia; R74.0 Nonspecific elevation of levels of transaminase and lactic acid dehydrogenase [LDH]; E78.2 Mixed hyperlipidemia; Z82.49 Family history of ischemic heart disease and other diseases of the circulatory system; Z83.3 Family history of diabetes mellitus; Z79.899 Other long term (current) drug therapy; I25.2 Old myocardial infarction
CPT/HCPCS: 36415; 71045; 80048; 80053; 80074; 81001; 82962; 83880; 84145; 84484; 85007; 85025; 85610; 85730; 86140; 87040; 87400; 93005; 93010; 96365; G0378; A9270-GY; J0456; J0696; J1650; J7030; J7050

== ENCOUNTER 2022-05-06 10:00 | Outpatient (CLI) | payer MEDICARE ==
[2022-05-06 12:09] LABS: Basophils % (Auto) 0.6 % (0.0-1.8); Eosinophils # (Auto) 0.1 K/mm3 (0.0-0.4); Eosinophils % (Auto) 1.1 % (0.0-4.3); Hematocrit 45.6 % (35.5-45.6); Hemoglobin 14.8 gm/dl (11.8-15.2); Lymphocytes # (Auto) 1.1 K/mm3 (1.2-5.4); Lymphocytes % (Auto) 17.6 % (13.4-35.0); Mean Corpuscular HGB Conc 32 % (32-34); Mean Corpuscular Volume 92 fl (84-94); Monocytes # (Auto) 0.4 K/mm3 (0.0-0.8); Monocytes % (Auto) 6.5 % (0.0-7.3); Platelet Count 198 K/mm3 (140-440); Red Blood Count 4.95 M/mm3 (3.65-5.03); Red Cell Distribution Width 13.5 % (13.2-15.2)
[2022-05-06 12:21] LABS: Creatinine,Urine < 4.2 mg/dL (0.1-20.0)
[2022-05-06 12:55] LABS: Albumin 5.1 g/dL (3.9-5); Calcium 9.9 mg/dL (8.4-10.2); Chol/HDL Ratio 3.05 %
[2022-05-09 16:19] LABS: Vitamin D, 25-OH, D2 <4 ng/mL
== END 2022-05-06 10:01 | disposition home or self-care (01) ==
LOC: LABHHL 10:00
PROVIDERS: ATTEND Internal Medicine
DX: E11.65 Type 2 diabetes mellitus with hyperglycemia (principal); E55.9 Vitamin D deficiency, unspecified; I25.10 Atherosclerotic heart disease of native coronary artery without angina pectoris; E78.5 Hyperlipidemia, unspecified; N28.9 Disorder of kidney and ureter, unspecified; R53.83 Other fatigue; R97.20 Elevated prostate specific antigen [PSA]; Z00.00 Encounter for general adult medical examination without abnormal findings
CPT/HCPCS: 36415; 80053; 80061; 82043; 82306; 83036; 84443; 85025